=== PATIENT | female | born 1955 | race Two or more races ===

== ENCOUNTER 2021-08-15 06:11 | Emergency (ER) | payer OTHER, MEDICAID ==
[~2021-08-15] VITALS: Ht 165.1 cm; Wt 113.4 kg
[2021-08-15 06:12] VITALS: BP 0/0
[2021-08-15] MEDS ORDERED: DOPamine 1600mCg/ml 400MG/250ml NSorD5 KIT/BAG IV ONE (06:12)
[2021-08-15] MEDS ORDERED: EPINEPHrine HCL 1 MG/10 ML SYRG IV ONE (06:12)
[2021-08-15] MEDS ORDERED: NOREPINEPHRINE 8 MG/250ML KIT 0 ML IV ONE (06:40)
== END 2021-08-15 06:43 ==
LOC: EDBD 06:11 → ER 06:11
DX: I46.9 Cardiac arrest, cause unspecified (principal); I10 Essential (primary) hypertension; E11.9 Type 2 diabetes mellitus without complications; E78.5 Hyperlipidemia, unspecified
CPT/HCPCS: 92950; 99291; J0171; J1265